=== PATIENT | female | born 1960 | race Caucasian/White ===

== ENCOUNTER 2018-08-04 12:01 | Day surgery (SDC) | payer OTHER, MEDICAID ==
[2018-08-04] MEDS ORDERED: FENTAnyl 50 MCG/ML VIAL (14:39)
[2018-08-04] MEDS ORDERED: MIDAZOLAM 1 MG/ML 2 ML INJ ×2 (14:40)
== END 2018-08-04 14:56 | disposition home or self-care (01) ==
LOC: GIL 12:01
DX: R19.4 Change in bowel habit (principal); K64.0 First degree hemorrhoids; K57.30 Diverticulosis of large intestine without perforation or abscess without bleeding; E11.9 Type 2 diabetes mellitus without complications; Z12.11 Encounter for screening for malignant neoplasm of colon
CPT/HCPCS: 45378; 82962